=== PATIENT | female | born 1965 | race African-American/Black ===

== ENCOUNTER 2019-07-21 09:15 | Emergency (ER) | payer OTHER ==
[~2019-07-21] VITALS: Ht 152.4 cm; Wt 76.2 kg
[~2019-07-21 09:15] MED LIST: BUPROBAN150 MG PO; ESTAZOLAM2 MG PO; NABUMETONE500 MG PO; PERCOCET 5/3251 TAB PO; QNASL8.7 GM NS; SYNTHROID112 MCG PO
[2019-07-21] MEDS ORDERED: SYNTHROID100 MCG (09:24)
[2019-07-21] MEDS ORDERED: SYNTHROID88 MCG (09:24)
[2019-07-21] MEDS ORDERED: SINGULAIR10 MG (09:24)
[2019-07-21] MEDS ORDERED: WELLBUTRIN SR100 MG (09:25)
== END 2019-07-21 10:13 | disposition home or self-care (01) ==
LOC: ER 09:15
DX: B37.3 Candidiasis of vulva and vagina (principal)

== ENCOUNTER 2021-01-07 13:39 | Emergency (ER) | payer OTHER ==
[~2021-01-07] VITALS: Ht 149.9 cm; Wt 74.4 kg
[~2021-01-07 13:39] MED LIST changes: +SINGULAIR10 MG; +SYNTHROID100 MCG; +SYNTHROID88 MCG; +WELLBUTRIN SR100 MG
[2021-01-07] MEDS ORDERED: PEPCID20 MG PO (13:56)
[2021-01-07] MEDS ORDERED: PROAIR HFA8.5 GM (13:56)
[2021-01-07] MEDS ORDERED: CLARITIN10 M1 PO (13:56)
[2021-01-07] MEDS ORDERED: ORPHENADRINE C100 MG PO (16:17)
[2021-01-07] MEDS ORDERED: KETO10TA2 PO (16:17)
[2021-01-07] MEDS ORDERED: CYCLOBENZAPRINE10 MG PO (16:17)
== END 2021-01-07 16:23 | disposition home or self-care (01) ==
LOC: ER 13:39
DX: S23.3XXA Sprain of ligaments of thoracic spine, initial encounter (principal); X50.0XXA Overexertion from strenuous movement or load, initial encounter; Y93.E1 Activity, personal bathing and showering; Y92.012 Bathroom of single-family (private) house as the place of occurrence of the external cause; Y99.8 Other external cause status

== ENCOUNTER 2022-08-15 06:11 | Emergency (ER) | payer OTHER ==
[~2022-08-15] VITALS: Ht 149.9 cm; Wt 76.2 kg
[~2022-08-15 06:11] MED LIST changes: +CLARITIN10 M1 PO; +CYCLOBENZAPRINE10 MG PO; +KETO10TA2 PO; +ORPHENADRINE C100 MG PO; +PEPCID20 MG PO; +PROAIR HFA8.5 GM
== END 2022-08-15 11:09 | disposition home or self-care (01) ==
LOC: ER 06:11
DX: B34.8 Other viral infections of unspecified site (principal)

== ENCOUNTER 2024-02-27 09:43 | Emergency (ER) | payer OTHER ==
[~2024-02-27] VITALS: Ht 149.9 cm; Wt 77.1 kg
[~2024-02-27 09:43] MED LIST changes: +AMITRIPTYLINE H10 MG PO; +DICLOFENAC-MIS1 EAC3 PO; +LIPITOR20 MG PO; +NORFLEX100MG PO; +OMEPRAZOLE MAGN20 MG PO; +WELLBUTRIN SR150 MG PO; +ZESTRIL2.5 MG PO
[2024-02-27] MEDS ORDERED: KETOROLAC TROMETHAMINE 15 MG VIAL IM STA (10:50)
[2024-02-27 11:50] LABS: HEMATOCRIT 38.6 % (36.0-45.00); HEMOGLOBIN 13.4 g/dL (12.0-15.00); MEAN CELL VOLUME 92.5 fL (80.00-100.00); MEAN CORPUSCULAR HEMOGLOBIN 32.1 pg (27.00-32.0); MEAN CORPUSCULAR HGB CONC 34.7 g/dl (32.0-36.0); PLATELET COUNT 241 K/uL (150-450); RED BLOOD COUNT 4.17 M/uL (4.00-6.00); RED CELL DISTRIBUTION WIDTH 13.9 % (11.5-14.5)
[2024-02-27 12:14] LABS: PH,URINE 5.5 (5.0-8.0); URINE BILIRRUBIN Negative (NEGATIVE); URINE BLOOD Trace; URINE COLOR Yellow; URINE GLUCOSE Negative (NEGATIVE); URINE LEUKOCYTE Negative; URINE NITRATE Negative; URINE PROTEIN Negative (NEGATIVE); URINE UROBILINOGEN 0.2 E.U./dl
[2024-02-27 12:18] LABS: URINE BACTERIA 85.6 uL (0.0-1933); URINE EPITHELIAL CELLS 5.5 uL (0.0-38.8); URINE RBC 38.3 uL (0.0-20.8)
[2024-02-27 12:45] LABS: URINE APPEARANCE Clear
== END 2024-02-27 15:57 | disposition home or self-care (01) ==
LOC: ER 09:44
PROVIDERS: Emergency Medicine
DX: M54.89 Other dorsalgia (principal); K57.30 Diverticulosis of large intestine without perforation or abscess without bleeding; K76.0 Fatty (change of) liver, not elsewhere classified; B34.9 Viral infection, unspecified; Z87.09 Personal history of other diseases of the respiratory system; Z20.822 Contact with and (suspected) exposure to COVID-19

== ENCOUNTER 2024-09-20 21:37 | Emergency (ER) | payer OTHER ==
[~2024-09-20] VITALS: Ht 149.9 cm; Wt 77.1 kg
[2024-09-20] MEDS ORDERED: KETOROLAC TROMETHAMINE 30 MG VIAL IM STA (22:53)
[2024-09-20] MEDS ORDERED: KETOROLAC TROMETHAMINE 30 MG VIAL ONE (23:13)
== END 2024-09-20 23:17 | disposition home or self-care (01) ==
LOC: ER 21:37
DX: H57.11 Ocular pain, right eye (principal)
CPT/HCPCS: 96372; 99282; J1885

== ENCOUNTER 2025-01-05 17:11 | Emergency (ER) | payer OTHER ==
[~2025-01-05] VITALS: Ht 149.9 cm; Wt 74.4 kg
[2025-01-05] MEDS ORDERED: SYNTHROID88 MCG PO (18:24)
[2025-01-05] MEDS ORDERED: FAMOTIDINE/PF 20 MG/2 ML VIAL IV PUSH STA (18:49)
[2025-01-05] MEDS ORDERED: ACETAMINOPHEN 500 MG GEL..CAP PO STA (18:54)
[2025-01-05] MEDS ORDERED: FAMOTIDINE/PF 20 MG/2 ML VIAL ONE (18:55)
[2025-01-05] MEDS ORDERED: ACETAMINOPHEN 500 MG GEL..CAP PO ONE (19:08)
[2025-01-05 19:28] LABS: HEMATOCRIT 39.4 % (36.0-45.00); HEMOGLOBIN 13.3 g/dL (12.0-15.00); MEAN CELL VOLUME 92.9 fL (80.00-100.00); MEAN CORPUSCULAR HEMOGLOBIN 31.2 pg (27.00-32.0); MEAN CORPUSCULAR HGB CONC 33.6 g/dl (32.0-36.0); PLATELET COUNT 260 K/uL (150-450); RED BLOOD COUNT 4.24 M/uL (4.00-6.00); RED CELL DISTRIBUTION WIDTH 14.6 % (11.5-14.5)
[2025-01-05 19:37] LABS: INFLUENZA A AG NEGATIVE (NEGATIVE)
[2025-01-05 20:08] LABS: PH,URINE 5.5 (5.0-8.0); URINE APPEARANCE Clear; URINE BILIRRUBIN Small (NEGATIVE); URINE BLOOD Moderate; URINE COLOR Dark Yellow; URINE GLUCOSE Negative (NEGATIVE); URINE LEUKOCYTE Negative; URINE NITRATE Negative; URINE PROTEIN 30 (NEGATIVE)
[2025-01-05 20:11] LABS: URINE BACTERIA 605.8 uL (0.0-1933); URINE EPITHELIAL CELLS 33.8 uL (0.0-38.8); URINE RBC 101.3 uL (0.0-20.8); URINE WBC 10.9 uL (0.0-23.2)
[2025-01-05 20:16] LABS: URINE CAST 0.44 uL (0.0-1.40); URINE KETONE 80 (NEGATIVE)
[2025-01-05 20:27] LABS: COVID-19 AG NEGATIVE (NEGATIVE)
[2025-01-05] MEDS ORDERED: BENZONATATE200 M1 PO (21:38)
== END 2025-01-05 22:02 | disposition home or self-care (01) ==
LOC: ER 17:11
PROVIDERS: General Practice
DX: J06.9 Acute upper respiratory infection, unspecified (principal); I10 Essential (primary) hypertension; Z20.822 Contact with and (suspected) exposure to COVID-19
CPT/HCPCS: 36415; 71046; 96365; 99283; J3490